=== PATIENT | male | born 1985 | race Caucasian/White ===

== ENCOUNTER 2024-03-09 15:52 | Inpatient (IN) | payer OTHER, MEDICAID ==
[~2024-03-09] VITALS: Ht 172.7 cm; Wt 91.9 kg
[2024-03-09 15:58] VITALS: BP 140/102; PULSE 101; RESP 20; TEMP 98.2; O2SAT 96
[2024-03-09] MEDS: NACL 0.9% 1,000 ML IV ONE (16:36)
[2024-03-09 16:37] LABS: BASOPHILS # (AUTO) 0.1 K/uL (0.00-0.22); BASOPHILS % (AUTO) 0.6 % (0.0-2.0); EOSINOPHILS # (AUTO) 0.1 K/uL (0-0.4); EOSINOPHILS % (AUTO) 0.8 % (0.0-4.0); HEMATOCRIT 48.7 % (36-52); HEMOGLOBIN 16.6 g/dL (12.0-18.0); LYMPHOCYTES % (AUTO) 18.1 % (20.5-51.1); MEAN CORPUSCULAR HEMOGLOBIN 31 pg (27-31); MEAN CORPUSCULAR HGB CONC 34 g/dL (33-37); MEAN CORPUSCULAR VOLUME 90.4 fL (80-94); MONOCYTES % (AUTO) 9.3 % (1.7-9.3); NEUTROPHILS # (AUTO) 7.7 K/uL (1.8-7.7); NEUTROPHILS % (AUTO) 71.2 % (42.2-75.2); PLATELET COUNT (AUTO) 223 K/uL (140-450); RED BLOOD CELL COUNT(AUTO) 5.39 MIL/uL (4.20-6.10); RED CELL DISTRIBUTION WIDTH 13.7 % (11.6-13.7); WHITE BLOOD COUNT (AUTO) 10.8 K/uL (4.8-10.8)
[2024-03-09] MEDS: ONDANSETRON 4 MG/2 ML VIAL IVP ONE (16:41)
[2024-03-09] MEDS: DIAZEPAM PFS 10 MG/2 ML SYR IVP ONE (16:42)
[2024-03-09 16:53] LABS: ANION GAP 16.3 (8-16); CALCIUM 9.8 mg/dL (8.5-10.1); CARBON DIOXIDE 25.9 mmol/L (21-32); CREATININE 1.1 mg/dL (0.6-1.3); POTASSIUM 3.2 mmol/L (3.5-5.1)
[2024-03-09 16:57] LABS: ALBUMIN 4.7 g/dL (3.4-5.0); BILIRUBIN,DIRECT 0.4 mg/dL (0.0-0.3); MAGNESIUM 1.5 mg/dL (1.8-2.4); PHOSPHORUS 3.3 mg/dL (2.5-4.9); TOTAL BILIRUBIN 1.4 mg/dL (0.0-1.0); TOTAL PROTEIN, SERUM 8.9 g/dL (6.4-8.2)
[2024-03-09] MEDS: LORazepam 1 MG TAB PO ONE (19:47)
[2024-03-09] MEDS: LORazepam 2 MG/ML VIAL IVP ONE (19:48)
[2024-03-09] MEDS ORDERED: POTASSIUM CHLORIDE 10 MEQ TABER PO PRN (20:05)
[2024-03-09] MEDS ORDERED: ACETAMINOPHEN 325 MG TAB PO PRN (20:05)
[2024-03-09] MEDS ORDERED: MORPHINE SULFATE 2 MG/ML SYR IVP PRN (20:05)
[2024-03-09] MEDS ORDERED: LORazepam 2 MG/ML VIAL IVP PRN (20:05)
[2024-03-09] MEDS ORDERED: KCL 20 MEQ IN 100 mL PREMIX 200 ML IV PRN (20:05)
[2024-03-09] MEDS ORDERED: MAG SULF 2000 MG/WATER PREMIX 50 ML IV PRN (20:05)
[2024-03-09] MEDS ORDERED: MAGNESIUM OXIDE 400 MG TAB PO PRN (20:05)
[2024-03-09] MEDS ORDERED: HYDROcodone/APAP 5/325 MG 1 TAB TAB PO PRN (20:05)
[2024-03-09] MEDS: NACL 0.9% 1,000 ML IV SCH (22:15)
[2024-03-09] MEDS: MAG SULF 2000 MG/WATER PREMIX 50 ML IV ONE (22:31)
[2024-03-09] MEDS: KCL 20 MEQ IN 100 mL PREMIX 100 ML IV ONE (22:38)
[2024-03-10] VITALS: BP 119/84; PULSE 61; PULSE 73; RESP 18; TEMP 96.9; O2SAT 97
[2024-03-10 00:44] LABS: ANION GAP 11.8 (8-16); CALCIUM 9.3 mg/dL (8.5-10.1); CARBON DIOXIDE 30.3 mmol/L (21-32); POTASSIUM 3.1 mmol/L (3.5-5.1)
[2024-03-10 04:00] VITALS: BP 140/85; PULSE 81; PULSE 86; RESP 17; TEMP 97.3; O2SAT 96
[2024-03-10] MEDS: ONDANSETRON 4 MG/2 ML VIAL IVP PRN (04:36)
[2024-03-10 07:11] LABS: BASOPHILS % (AUTO) 0.5 % (0.0-2.0); EOSINOPHILS # (AUTO) 0.2 K/uL (0-0.4); EOSINOPHILS % (AUTO) 2.3 % (0.0-4.0); HEMATOCRIT 46.8 % (36-52); HEMOGLOBIN 16.1 g/dL (12.0-18.0); LYMPHOCYTES # (AUTO) 1.8 K/uL (2.0-11.5); LYMPHOCYTES % (AUTO) 25.3 % (20.5-51.1); MEAN CORPUSCULAR HEMOGLOBIN 31 pg (27-31); MEAN CORPUSCULAR HGB CONC 35 g/dL (33-37); MEAN CORPUSCULAR VOLUME 90.8 fL (80-94); MONOCYTES # (AUTO) 0.8 K/uL (0.8-1.0); NEUTROPHILS # (AUTO) 4.4 K/uL (1.8-7.7); NEUTROPHILS % (AUTO) 60.9 % (42.2-75.2); PLATELET COUNT (AUTO) 194 K/uL (140-450); RED BLOOD CELL COUNT(AUTO) 5.15 MIL/uL (4.20-6.10); RED CELL DISTRIBUTION WIDTH 13.9 % (11.6-13.7); WHITE BLOOD COUNT (AUTO) 7.1 K/uL (4.8-10.8)
[2024-03-10 07:38] LABS: ALBUMIN 4.1 g/dL (3.4-5.0); ANION GAP 15.3 (8-16); CALCIUM 9.5 mg/dL (8.5-10.1); CARBON DIOXIDE 25.7 mmol/L (21-32); CREATININE 0.9 mg/dL (0.6-1.3); MAGNESIUM 2.2 mg/dL (1.8-2.4); TOTAL BILIRUBIN 1.1 mg/dL (0.0-1.0)
[2024-03-10 08:00] VITALS: BP 132/84; PULSE 74; PULSE 85; PULSE 96; RESP 18; TEMP 98.5; O2SAT 95
[2024-03-10] MEDS: THIAMINE 200 MG/2 ML VIAL IV SCH (08:25)
[2024-03-10] MEDS: FOLIC ACID 1 MG TAB PO ONE (08:26)
[2024-03-10] MEDS: ENOXAPARIN 40 MG/0.4 ML SYR SUBQ SCH (08:33)
[2024-03-10 12:00] VITALS: BP 137/75; PULSE 74; PULSE 98; RESP 18; TEMP 98.1; O2SAT 96
[2024-03-10] MEDS: methocarbamoL 500 MG TAB PO SCH (12:09)
[2024-03-10 13:03] LABS: ANION GAP 13.3 (8-16); CALCIUM 9.1 mg/dL (8.5-10.1); CARBON DIOXIDE 27.7 mmol/L (21-32)
[2024-03-10 16:00] VITALS: BP 119/74; PULSE 76; PULSE 81; RESP 18; TEMP 98.6; O2SAT 97
[2024-03-10] MEDS ORDERED: METH-1866 PO (17:26)
[2024-03-10 17:36] VITALS: BP 119/74; PULSE 81; RESP 18; TEMP 98.6
== END 2024-03-10 18:25 | disposition home or self-care (01) | DRG 641 ==
LOC: MED 15:52 → MTU 20:15
PROVIDERS: ADMIT Internal Medicine; ATTEND Internal Medicine
DX: E87.1 Hypo-osmolality and hyponatremia (principal); F10.239 Alcohol dependence with withdrawal, unspecified; E87.6 Hypokalemia; E83.42 Hypomagnesemia; Y90.9 Presence of alcohol in blood, level not specified
CPT/HCPCS: 36415; 80048; 80053; 80076; 83735; 84100; 85025; 87081; 96361; 96374; 96375; 99291; G0482; J1650; J2060; J2405; J3360; J3411; J3475; J3480